=== PATIENT | male | born 1990 | race Caucasian/White ===

== ENCOUNTER 2016-05-13 01:30 | Emergency (ER) | payer BC, OTHER ==
[~2016-05-13] VITALS: Ht 170.2 cm; Wt 58.5 kg
[2016-05-13 01:45] VITALS: BP 120/77
--- NOTE | 2016-05-13 03:30 | NUR ---
PT TAKEN TO BED 4
--- NOTE | 2016-05-13 03:35 | NUR ---
Patient being evaluated by physician at bedside.
--- NOTE | 2016-05-13 03:36 | NUR ---
25/M presents to ED for evaluation of lower back pain since last Friday accompanied with N/V/D which started Friday. Patient c/o 01/21 to lower back, dull, non radiating, constant. Patient denies any fall, injury or trauma to lexus. Patient is AOX4, ambulatory with steady gait.
[2016-05-13] MEDS ORDERED: MORPHINE SULFATE 4 MG/ML SYR IVP ONE (03:50)
[2016-05-13] MEDS ORDERED: NACL 0.9% 1,000 ML IV ONE (03:50)
[2016-05-13] MEDS ORDERED: ONDANSETRON 4 MG/2 ML VIAL IVP ONE (03:50)
--- NOTE | 2016-05-13 04:21 | NUR ---
Pt provided with warm blanket, placed in position of comfort, bed in lowest position.
[2016-05-13 05:35] VITALS: BP 118/73
--- NOTE | 2016-05-13 05:35 | NUR ---
Patient discharged with v/s stable. Written and verbal after care instructions given and explained. Patient alert, oriented and verbalized understanding of instructions. Ambulatory with steady gait. All questions addressed prior to discharge. ID band removed. Patient advised to follow up with PMD. Rx of TRAMADOL, ZOFRAN given. Patient educated on indication of medication including possible reaction and side effects. Opportunity to ask questions provided and answered.
== END 2016-05-13 05:35 | disposition home or self-care (01) ==
LOC: MED 01:30
DX: K52.9 Noninfective gastroenteritis and colitis, unspecified (principal); E86.0 Dehydration
CPT/HCPCS: 36415; 80053; 82948; 83690; 85025; 96374; 96375; 99284; J2270; J2405; J7030

== ENCOUNTER 2022-03-03 19:21 | Emergency (ER) | payer BC, OTHER ==
[~2022-03-03] VITALS: Ht 170.2 cm; Wt 61.2 kg
[2022-03-03 20:41] VITALS: BP 117/73
[2022-03-03] MEDS ORDERED: KETOROLAC 60 MG/2 ML VIAL IM ONE ×2 (20:50→20:51)
--- NOTE | 2022-03-03 21:38 | NUR ---
Patient being evaluated by physician
[2022-03-03] MEDS ORDERED: NAPR-54 PO (21:40)
--- NOTE | 2022-03-03 21:44 | NUR ---
PT GIVEN D/C INSTRUCTIONS AND MEDICATION ADMINISTRATION INFORMATION BY DR. MARIN. RX OF NAPROSYN PROVIDED.
== END 2022-03-03 21:44 | disposition home or self-care (01) ==
LOC: MED 19:21
DX: S33.5XXA Sprain of ligaments of lumbar spine, initial encounter (principal); X58.XXXA Exposure to other specified factors, initial encounter; Y93.89 Activity, other specified; Y92.89 Other specified places as the place of occurrence of the external cause; Y99.8 Other external cause status
CPT/HCPCS: 96372; 99283; J1885

== ENCOUNTER 2023-11-12 19:45 | Emergency (ER) | payer SELFPAY ==
[~2023-11-12] VITALS: Ht 167.6 cm; Wt 68.0 kg
[~2023-11-12 19:45] MED LIST: NAPR-337 PO
[2023-11-12 19:50] VITALS: BP 121/79; PULSE 91; RESP 18; TEMP 97.3; O2SAT 99
== END 2023-11-12 19:56 ==
LOC: MED 19:45
DX: Z02.89 Encounter for other administrative examinations (principal); Z79.899 Other long term (current) drug therapy; V89.2XXA Person injured in unspecified motor-vehicle accident, traffic, initial encounter; Y93.89 Activity, other specified; Y92.410 Unspecified street and highway as the place of occurrence of the external cause; Y99.8 Other external cause status
CPT/HCPCS: 99283